=== PATIENT | male | born 1995 | race Caucasian/White ===

== ENCOUNTER 2023-01-09 14:17 | Emergency (ER) | payer OTHER, SELFPAY ==
[2023-01-09 14:21] VITALS: BP 134/87; PULSE 60; RESP 16; TEMP 37; O2SAT 99
--- NOTE | 2023-01-09 14:30 | DI.RAD_ITS ---
Exam(s) XR SHOULDER LT COMPLETE 2+V EXAM: XR SHOULDER LT COMPLETE 2+V CLINICAL HISTORY: pain left shoulder, fall. TECHNIQUE: 2D digital imaging was performed. COMPARISON: No exams were available for comparison FINDINGS: There is grade 3 dislocation of the acromioclavicular joint with over riding of the lateral clavicle and the chromium. There appears to be a possible os acromiale. Humeral head and glenohumeral joint appear unremarkable. Subacromial space is not diminished. No ab normal soft tissue calcifications. No osseous lesions. Bone density normal. IMPRESSION: AC joint dislocation. DATA REPOSITORY: RADIATION DOSE DELIVERED:
[2023-01-09] MEDS: oxyCODONE 5 mg/Acetaminophen 325 mg TAB 1 TAB PO (14:40)
--- NOTE | 2023-01-09 14:50 | W.ED.GENAD ---
Discharge Plan Disposition Patient Disposition: Home Discharge Details Clinical Impression: Acromioclavicular joint separation Primary Care Provider: Mica,Local ED Provider: Zuri Nevarez Home Meds and New Rx's Prescriptions: New oxycodone 5 mg capsule 5 mg PO Q8H PRNQty: 10 0RF Discharge Instructions Additional Instructions: take ibuprofen 600 mg and Tylenol 650 as needed for pain as prescribed on bottle Have given you a small amount of oxycodone, take this sparingly Keep your shoulder in a sling and follow-up with orthopedics, have placed a referral to care management but I recommend calling [facility] orthopedics as well as schedule an appointment You likely have an AC joint separation Please return immediately should you have new or worsening complaints including skin discoloration, sensation change Discharge Data Discharge Date/Time-TO BE ENTERED AT DEPARTURE: 01/09/23 15:35 Medical Decision Making 27-year-old male presents with report of injury to left shoulder, tripped and fell We will order x-ray HPI General Date/Time Provider Initiated Documentation: 01/09/23 14:25. HPI Narrative: 27-year-old male presents with report of fall onto left shoulder. States he thinks his left shoulder is dislocated. Denies prior history of dislocations. Denies any additional injuries. States he has pain with any sort of movement. Denies any neck pain or chest pain. Denies history of anticoagulation. Related Data Home Medications Medication Instructions Recorded Confirmed oxycodone 5 mg capsule 5 mg PO Q8H PRN #10 caps 01/09/23 Previous Rx's Medication Instructions Recorded oxycodone 5 mg capsule 5 mg PO Q8H PRN #10 caps 01/09/23 Allergies Allergy/AdvReac Type Severity Reaction Status Date / Time No Known Allergies Allergy Unverified 01/09/23 14:31 General Stated Complaint: Orthopedic JONNY: 3 PFSH All Active Problems (Updated 01/09/23 @ 15:21 by ANISH Gomez) Acromioclavicular joint separation (Acute) Social History Smoking/Tobacco Use Status: Never Smoking risk assessment performed?: Yes Exam Narrative Exam Narrative: Patient with tenderness and deformity noted to the AC joint, neurovascularly intact, no tenderness to cervical spine or left elbow pain, no tenderness to thoracic or lumbar spine Course Vital Signs Vital signs: Vital Signs Temperature 37.0 C 01/09/23 14:21 Pulse 60 01/09/23 14:21 Respiratory Rate 16 01/09/23 14:21 Blood Pressure 134/87 01/09/23 14:21 Pulse Oximetry 99 01/09/23 14:21 Temperature 37.0 C 01/09/23 14:21 Temperature Source Oral 01/09/23 14:21 Pulse 60 01/09/23 14:21 Respiratory Rate 16 01/09/23 14:21 Respiratory Effort Normal 01/09/23 14:30 Blood Pressure 134/87 01/09/23 14:21 Blood Pressure Position Sitting 01/09/23 14:21 Pulse Oximetry 99 01/09/23 14:21 Oxygen Delivery Method Room Air 01/09/23 14:21 Oxygen Flow Rate 0 01/09/23 14:21 PAWSS Have you Been Recently Intoxicated or Drunk Within the Last 30 days?: Yes Have you Ever Experienced Previous Episodes of Alcohol Withdrawal?: No Have you ever Experienced Withdrawal Seizures?: No Have you ever Experienced Delirium Tremens(DT)s?: No Have you ever undergone Alcohol Rehabilitation Treatment (i.e, inpt ot outpatient treatment programs)?: No Have you ever Experienced Blackouts?: No Have you ever Combined Alcohol with other Downers within the last 90 days?: No Have you ever Combined Alcohol with any other Substance of Abuse during the last 90 days?: No Positive Blood Alcohol level on Presentation? [PCS.BAL]: No Evidence of Increased Autonomic Activity (i.e. HR>120, tremor, sweating, agitation, nausea)?: No Result: 1
--- NOTE | 2023-01-09 15:34 | DI.VRAD_ITS ---
PROCEDURE INFORMATION: Exam: XR Left Shoulder Exam date and time: 01/09/2023 3:01 PM Age: 27 years old Clinical indication: Other: Pain left shoulder, fall TECHNIQUE: Imaging protocol: Radiologic exam of the left shoulder. Views: 2 or more views. COMPARISON: No relevant prior studies available. FINDINGS: Bones/joints: The humerus is positioned partially in internal rotation. There appears to be 3rd degree clavicular separation with possible partial resection of the clavicular head, chronicity uncertain. Soft tissues: Normal. Other findings: There appears to be an overlying artifact on the frontal view. IMPRESSION: Apparent previous third-degree clavicular separate. No additional acute abnormality noted. Dictated and Authenticated by: Davina Gillespie MD. Ordering:DIAN Keating MD
[2023-01-09 15:35] VITALS: PULSE 74; RESP 18; O2SAT 98
== END 2023-01-09 15:35 | disposition home or self-care (01) ==
PROVIDERS: Emergency Provider Physician Assistant
DX: S43.102A Unspecified dislocation of left acromioclavicular joint, initial encounter (principal); W01.0XXA Fall on same level from slipping, tripping and stumbling without subsequent striking against object, initial encounter
CPT/HCPCS: 99283; 73030; 99284